=== PATIENT | male | born 1995 | race American Indian/Alaskan Native ===

== ENCOUNTER 2017-02-13 21:25 | Emergency (ER) | payer SELFPAY ==
--- NOTE | 2017-02-14 01:12 | Emergency Department Report ---
Abscess Boil HPI - HPI Chief Complaint: Skin/Abscess/Foreign Body Stated Complaint: RASH/HEADACHE Time Seen by Provider: 02/14/17 00:41 Duration: >1 Week (19 days) Location: Sacral/Pilonidal (pubic area) Severity: Moderate (headache 3 out of 10 for 2 weeks on and off. He said he feels feverish but has not checked his temperature. Denies any urinary burning frequency or urgency.) History: Yes Fever (has not checked his temperature), Yes Pain (pubic area and headache), Yes Purulent Drainage (abscess that pubic area), No Previous History , No Insect Bite HPI: Patient reports that he had abscess to his pubic area that drained pus and it's been there for 01/25 2017. He said when this happened and he also had a headache that comes and goes. He said he drained the area and now it's flat. Denies any nausea or vomiting. He said before he drained the pus from the side he had fever or felt feverish but did not take his temperature. Denies any urinary burning, frequency or urgency. Denies any abdominal or back pain. Denies any concern for STD. Home Medications: Previous Rx's Medication Instructions Recorded Last Taken Type Doxycycline [Vibramycin CAP] 100 mg PO Q12HR #20 capsule 04/03/16 Unknown Rx Sulfamethoxazole/Trimethoprim 1 each PO BID #20 tablet 02/14/17 Unknown Rx [Bactrim DS TAB] Allergies/Adverse Reactions: Allergies Allergy/AdvReac Type Severity Reaction Status Date / Time No Known Allergies Allergy Unverified 03/06/16 15:15 ED Review of Systems ROS: Stated complaint: RASH/HEADACHE Other details as noted in HPI Comment: All other systems reviewed and negative Constitutional: fever. denies: chills ENT: denies: ear pain, throat pain, congestion Respiratory: no symptoms reported Cardiovascular: denies: chest pain, palpitations, edema, syncope Gastrointestinal: denies: abdominal pain, nausea, vomiting, diarrhea Genitourinary: denies: urgency, dysuria, frequency, hematuria, discharge, testicular pain, testicular mass Musculoskeletal: denies: back pain, joint swelling, arthralgia, myalgia Skin: rash, other (abscess) Neurological: headache. denies: weakness, numbness, paresthesias, confusion, abnormal gait, vertigo ED Past Medical Hx - Past Medical History Previous Medical History?: No - Surgical History Past Surgical History?: Yes Additional Surgical History: right thumb - Family History Family history: no significant - Social History Smoking Status: Current Every Day Smoker Substance Use Type: None - Medications Home Medications: Home Medications Medication Instructions Recorded Confirmed Last Taken Type Doxycycline [Vibramycin CAP] 100 mg PO Q12HR #20 capsule 04/03/16 Unknown Rx Sulfamethoxazole/Trimethoprim 1 each PO BID #20 tablet 02/14/17 Unknown Rx [Bactrim DS TAB] ED Abscess Boil Physical Exam - Exam General: Vital signs noted. No distress. Alert and acting appropriately. This is a 21-year-old male well-nourished well-developed in no acute distress. Front/Back of Body, Lg (Color): 1 - Dime-sized area and noted to pubic area. Area with scab. Tender to palpate but no induration or fluctuance. Small opening noted to Center. No erythema noted. Size: 1 cm Exam: Yes Tenderness (pubic area), Yes Normal Neurologic Exam, Yes Normal Circulation, No Fluctuance, No Surrounding Cellulites/Erythema, No Lymphangitis , No Crepitation, No Heart Murmur Exam: Head: Normocephalic, atraumatic. Lungs: Clear to auscultate bilaterally no rhonchi wheezes or rales. CV: S1, S2. Regular rate rhythm. Abdomen: Soft, nontender to palpate in all quadrants, no CVA tenderness and positive bowel sounds in all quadrants. Extremity: No clubbing, cyanosis or edema. +2 pulses in all extremities. : Noted small dime size area of crusting into pubic area otherwise no rash, vesicles or lesion noted. Penis appears to be normal. No inguinal lymph node. Mood: Normal mood and behavior. Neck: Supple, full range of motion and no C-spine tenderness. Neurological: GCS of 15, alert and oriented 3, negative Romberg, negative pronator drift, no facial droop in, speech is clear and fluid and gait is steady. I & D Note - I & D Note I & D Note: Small abscess to pubic area already drained. ED Course Vital Signs 02/13/17 22:10 Temperature 98.6 F Pulse Rate 88 Respiratory 18 Rate Blood Pressure 133/81 [Right] O2 Sat by Pulse 100 Oximetry - Reevaluation(s) Reevaluation #1: 02/14/17 01:49 Patient stable throughout ED course. Critical care attestation.: If time is entered above; I have spent that time in minutes in the direct care of this critically ill patient, excluding procedure time. ED Medical Decision Making - Medical Decision Making ED course: Patient with simple abscess to pubic area that started he drained and scabbed over. I discussed the patient that I will put him on antibiotic and he should follow up with his primary care physician in 3-5 days and if he does not have a primary care physician he will need to follow-up at [facility]. Patient was understanding of discharge diagnoses treatment plan discharge home in stable condition with prescription for Bactrim DS. ED Disposition Clinical Impression: Simple abscess Headache Qualifiers: Headache type: unspecified Headache chronicity pattern: acute headache Intractability: not intractable Qualified Code(s): R51 - Headache Disposition: DC-01 TO HOME OR SELFCARE Is pt being admited?: No Does the pt Need Aspirin: No Condition: Stable Instructions: Acute Headache (ED), Abscess (ED) Additional Instructions: Please follow-up with your primary care physician and if you do not have a primary care physician Youcan follow-up at [facility] and 2- 3 days. Take medication as prescribed You can take Tylenol plain for your headache Prescriptions: Sulfamethoxazole/Trimethoprim [Bactrim DS TAB] 1 each PO BID #20 tablet Referrals: PRIMARY CARE [Primary Care Provider] - 02/16/[address] [facility] [Outside] - 02/16/17 Forms: Work/School Release Form(ED)
[2017-02-14 02:12] VITALS: BP 99/6
== END 2017-02-14 02:11 | disposition home or self-care (01) ==
LOC: ED 21:25
DX: K65.1 Peritoneal abscess (principal); R51 Headache; F17.200 Nicotine dependence, unspecified, uncomplicated
CPT/HCPCS: 99282

== ENCOUNTER 2017-03-30 14:42 | Emergency (ER) | payer OTHER ==
[2017-03-30 15:02] VITALS: BP 131/85
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
== END 2017-03-30 15:25 | disposition home or self-care (01) ==
LOC: ED 14:42
DX: Z04.1 Encounter for examination and observation following transport accident (principal); F17.200 Nicotine dependence, unspecified, uncomplicated; V49.59XA Passenger injured in collision with other motor vehicles in traffic accident, initial encounter; Y93.89 Activity, other specified; Y99.9 Unspecified external cause status; Y92.410 Unspecified street and highway as the place of occurrence of the external cause
CPT/HCPCS: 99282